=== PATIENT | female | born 2000 | race Two or more races ===

== ENCOUNTER → 2022-11-16 | Emergency (ER) | payer OTHER ==
[~2022-11-16] VITALS: Ht 167.6 cm; Wt 63.5 kg
== END | disposition left against medical advice (07) ==
LOC: ER 13:02
DX: O20.8 Other hemorrhage in early pregnancy (principal)

== ENCOUNTER 2022-11-17 13:18 | Emergency (ER) | payer OTHER ==
[~2022-11-17] VITALS: Ht 167.6 cm; Wt 58.1 kg
== END 2022-11-17 20:51 | disposition home or self-care (01) ==
LOC: ER 13:18
DX: O03.9 Complete or unspecified spontaneous abortion without complication (principal); O23.41 Unspecified infection of urinary tract in pregnancy, first trimester; N39.0 Urinary tract infection, site not specified; Z3A.01 Less than 8 weeks gestation of pregnancy

== ENCOUNTER 2024-07-01 13:50 | Emergency (ER) | payer OTHER ==
[~2024-07-01] VITALS: Ht 167.6 cm; Wt 59.9 kg
[2024-07-01] MEDS ORDERED: PRENATAL VITAM1 EAC5 PO (14:27)
[2024-07-01 16:59] LABS: HEMATOCRIT 40.2 % (36.0-45.00); HEMOGLOBIN 13.5 g/dL (12.0-15.00); MEAN CELL VOLUME 88.6 fL (80.00-100.00); MEAN CORPUSCULAR HEMOGLOBIN 29.8 pg (27.00-32.0); MEAN CORPUSCULAR HGB CONC 33.7 g/dl (32.0-36.0); PLATELET COUNT 214 K/uL (150-450); RED BLOOD COUNT 4.54 M/uL (4.00-6.00); RED CELL DISTRIBUTION WIDTH 13.9 % (11.5-14.5)
[2024-07-01 17:41] LABS: CALCIUM 8.6 mg/dL (8.5-10.1); CREATININE SERUM 0.68 mg/dL (0.55-1.02); GFR 105.42; POTASSIUM 3.62 mEq/L (3.5-5.1)
== END 2024-07-01 21:38 | disposition home or self-care (01) ==
LOC: ER 13:52
PROVIDERS: Emergency Medicine
DX: O20.8 Other hemorrhage in early pregnancy (principal); Z3A.13 13 weeks gestation of pregnancy